=== PATIENT | female | born 1965 | race African-American/Black ===

== ENCOUNTER 2016-10-31 21:58 | Emergency (ER) | payer MEDICAID ==
[~2016-10-31] VITALS: Ht 165.1 cm; Wt 97.5 kg
--- NOTE | 2016-10-31 22:30 | NUR ---
PATIENT WALKED INTO ER C/O LEFT HAND SWELLING X1 DAY. PATIENT STATES WAS BITTEN BY BUG. CAPILLARY REFILL LESS THAN 3 SECOND
[2016-10-31] MEDS ORDERED: predniSONE 20 MG TABLET PO ONE (23:15)
[2016-10-31] MEDS ORDERED: CEPHALEXIN MONOHYDRATE 500 MG CAPSULE PO ONE (23:15)
[2016-10-31] MEDS ORDERED: TDAP DIPH,PERTUSS,TET VAC/PF 0.5 ML DISP.SYRIN IM ONE ×2 (23:15→23:29)
[2016-10-31] MEDS ORDERED: predniSONE 50 MG TABLET ONE (23:28)
[2016-10-31] MEDS ORDERED: CEPHALEXIN MONOHYDRATE 500 MG CAPSULE ONE (23:28)
[2016-10-31] MEDS ORDERED: predniSONE 10 MG TABLET ONE (23:28)
--- NOTE | 2016-11-01 00:09 | NUR ---
Patient discharged to home in stable conditon. Written and verbal after care instructions given. Patient verbalizes understanding of instructions. WALKED OUT OF ER WITH STAEADY GAIT
[2016-11-01 00:12] VITALS: BP 125/75
== END 2016-11-01 00:13 | disposition home or self-care (01) ==
LOC: ER 21:58
DX: L03.114 Cellulitis of left upper limb (principal); F10.20 Alcohol dependence, uncomplicated
CPT/HCPCS: 90471; 90715; 99283; A4663; J7512 ×2